=== PATIENT | female | born 1935 | race Caucasian/White ===

== ENCOUNTER 2017-01-21 18:59 | Emergency (ER) | payer MEDICARE ==
[2017-01-21 19:25] VITALS: BP 196/93
--- NOTE | 2017-01-21 19:50 | EDM.PDOC ---
ED HPI GENERAL MEDICAL PROBLEM - General Chief Complaint: ENT Problem Stated Complaint: SOMETHING STUCK IN MY THROAT Time Seen by Provider: 01/21/17 19:40 Source of Information: Reports: Patient History Limitations: Reports: No Limitations - History of Present Illness INITIAL COMMENTS - FREE TEXT/NARRATIVE: 81-year-old female with a sensation of a foreign body in her upper esophagus after eating pork. She's been unable to swallow for the past 2 hours. It feels the blockage is in her upper chest, she has no airway compromise or difficulty breathing. She is unable to swallow water or saliva. There is a pressure sensation which is uncomfortable. Onset: Sudden (2 hours ago) Severity: Moderate Worsens with: Reports: Other (Trying to swallow any fluids makes it worse) Associated Symptoms: Reports: No Other Symptoms Throat Pain Score (Numeric/FACES): 6 - Related Data Allergies Allergy/AdvReac Type Severity Reaction Status Date / Time nitrofurantoin Allergy Hives Verified 01/21/17 19:14 [From Macrobid] Sulfa (Sulfonamide Allergy Hives Verified 01/21/17 19:14 Antibiotics) Home Meds: Home Meds Aspirin [Low Dose Aspirin EC] 81 mg PO BID 01/21/17 [History] Lisinopril [Lisinopril] 1 tab PO DAILY 01/21/17 [History] Mesalamine [Asacol Hd] 800 mg PO Q48H 01/21/17 [History] Triamterene/Hydrochlorothiazid [Triamterene-HCTZ 37.5-25 MG] 1 each PO DAILY 05/09 [History] amLODIPine Besylate [Norvasc] 5 mg PO DAILY 01/21/17 [History] cloNIDine [Catapres] 0.1 mg PO DAILY 01/21/17 [History] Past Medical History HEENT History: Reports: Impaired Vision Cardiovascular History: Reports: Angina, High Cholesterol, Hypertension Gastrointestinal History: Reports: Other (See Below) Other Gastrointestinal History: colitis [employer]ERK History: Reports: , Spontaneous Musculoskeletal History: Reports: Osteoarthritis Dermatologic History: Reports: Other (See Below) Other Dermatologic History: rash - Infectious Disease History Infectious Disease History: Reports: Chicken Pox, Measles, Mumps, Shingles - Past Surgical History Cardiovascular Surgical History: Reports: Coronary Artery Stent GI Surgical History: Reports: Cholecystectomy, Colonoscopy Social & Family History - Tobacco Use Smoking Status *Q: Former Smoker Years of Tobacco use: 20 Packs/Tins Daily: 0.5 Used Tobacco, but Quit: Yes Month Tobacco Last Used: September Second Hand Smoke Exposure: No - Caffeine Use Caffeine Use: Reports: Coffee, Tea - Alcohol Use Days Per Week of Alcohol Use: 0 - Recreational Drug Use Recreational Drug Use: No ED ROS ENT - Review of Systems Review Of Systems: See Below Constitutional: Denies: Fever, Chills HEENT: Reports: Throat Pain Respiratory: Denies: Shortness of Breath Cardiovascular: Reports: Chest Pain (Upper chest pain related to the apparent obstruction) GI/Abdominal: Reports: Nausea. Denies: Abdominal Pain Skin: Reports: No Symptoms Neurological: Denies: Headache Psychiatric: Reports: No Symptoms ED EXAM, ENT - Physical Exam Exam: See Below Exam Limited By: No Limitations General Appearance: Alert, No Apparent Distress (Patient is not distressed but appears uncomfortable) Mouth/Throat: Normal Inspection Head: Atraumatic Respiratory/Chest: No Respiratory Distress GI/Abdominal: Soft Neurological: Alert, Oriented Psychiatric: Normal Affect, Normal Mood Skin: Warm, Dry Course - Vital Signs Last Recorded V/S: Last Vital Signs Temp 97.3 F 01/21/17 19:24 Pulse 99 01/21/17 19:24 Resp 16 01/21/17 19:24 BP 196/93 H 01/21/17 19:24 Pulse Ox 98 01/21/17 19:24 - Re-Assessments/Exams Free Text/Narrative Re-Assessment/Exam: 01/21/17 19:49 Patient was given some coke to swallow, it caused a pressure sensation and emesis. It initially didn't improve. She tried a second swallow of carbonated Coke and that did seem to dislodge the foreign body and she was able to swallow. 01/21/17 19:53 Her upper esophageal or pharyngeal foreign body apparently has resolved. I encouraged her to chew her food thoroughly and use fluids to aid in swallowing and if symptoms are recurring she needs to have further evaluation. Departure - Departure Time of Disposition: 20:00 Disposition: Home, Self-Care 01 Condition: Good Clinical Impression: Esophageal foreign body Qualifiers: Encounter type: initial encounter Qualified Code(s): T18.108A - Unspecified foreign body in esophagus causing other injury, initial encounter - Discharge Information Instructions: Swallowed Foreign Body, Adult, [id number] Referrals: PCP,None [Primary Care Provider] - Forms: ED Department Discharge Care Plan Goals: Chew food thoroughly and remember to use liquids to aid in swallowing. If symptoms are recurring talk to your doctor about getting a more formal evaluation of your esophagus and stomach. Return to ER anytime if worsening or concerns.
== END 2017-01-21 20:00 | disposition home or self-care (01) ==
LOC: JP.ED 18:59
DX: T18.128A Food in esophagus causing other injury, initial encounter (principal); E78.00 Pure hypercholesterolemia, unspecified; I10 Essential (primary) hypertension; M19.90 Unspecified osteoarthritis, unspecified site; Z88.2 Allergy status to sulfonamides; Z88.8 Allergy status to other drugs, medicaments and biological substances; Z79.82 Long term (current) use of aspirin; Z79.899 Other long term (current) drug therapy; Z87.891 Personal history of nicotine dependence
CPT/HCPCS: 99283

== ENCOUNTER 2022-08-19 13:16 | Emergency (ER) | payer MEDICARE ==
[2022-08-19] MEDS ORDERED: Lidocaine 1% with EPINEPHrine 1:100,000 50 ML MDV SUBCUT STA (13:58)
[2022-08-19] MEDS ORDERED: Bacitracin Oint 1 GM U/D Packet TOP ONE (13:58)
[2022-08-19 14:54] VITALS: BP 165/74; PULSE 74
== END 2022-08-19 15:32 | disposition home or self-care (01) ==
LOC: JP.ED 13:16
DX: S41.111A Laceration without foreign body of right upper arm, initial encounter (principal); I10 Essential (primary) hypertension; M19.90 Unspecified osteoarthritis, unspecified site; Z88.1 Allergy status to other antibiotic agents; Z88.2 Allergy status to sulfonamides; Z79.82 Long term (current) use of aspirin; Z79.899 Other long term (current) drug therapy
CPT/HCPCS: 12004; 99282; 99283